=== PATIENT | male | born 1970 | race African-American/Black ===

== ENCOUNTER 2017-07-15 12:33 | Emergency (ER) | payer OTHER ==
[~2017-07-15] VITALS: Ht 175.3 cm; Wt 90.0 kg
[2017-07-15 12:54] VITALS: BP 156/118
--- NOTE | 2017-07-15 12:58 | NUR ---
Patient ambulated to bed 7. RN evaluating patient at bedside.
--- NOTE | 2017-07-15 13:00 | NUR ---
PATIENT BIB SELF C/O BL LOWER BACK PAIN X 17 YEARS.HX OF [place] . 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 ER MD MADE AWARE OF PT STATUS.
--- NOTE | 2017-07-15 13:44 | NUR ---
Dr. Conklin evaluating patient at bedside.
[2017-07-15 14:05] VITALS: BP 156/118
--- NOTE | 2017-07-15 14:05 | NUR ---
Patient discharged with v/s stable. Written and verbal after care instructions given and explained.Patient alert, oriented and verbalized understanding of instructions. Ambulatory with steady gait. All questions addressed prior to discharge. ID band removed. Patient advised to follow up with PMD. Rx of NORCO given. Patient educated on indication of medication including possible reaction and side effects. Opportunity to ask questions provided and answered.
== END 2017-07-15 14:05 | disposition home or self-care (01) ==
LOC: MED 12:33
DX: G89.29 Other chronic pain (principal); M54.5 Low back pain; F17.210 Nicotine dependence, cigarettes, uncomplicated; Z88.8 Allergy status to other drugs, medicaments and biological substances
CPT/HCPCS: 81002; 99283

== ENCOUNTER 2019-01-29 11:04 | Emergency (ER) | payer OTHER ==
[~2019-01-29] VITALS: Ht 175.3 cm; Wt 79.5 kg
[2019-01-29 11:09] VITALS: BP 135/100
--- NOTE | 2019-01-29 11:16 | NUR ---
PT AMB TO BED 9
--- NOTE | 2019-01-29 11:20 | NUR ---
48 YO M BIB SELF C/O LOWER BACK PAIN AT 9/10 X 14 YEARS, CAME IN TODAY STATING PAIN IS UNBEARABLE. PT DENIES ANY RECENT INJURIES OR TRAUMA. PT HAS A HARD MASS TO L ANTERIOR NECK THAT IS TENDER TO TOUCH. PER PATIENT "YELLOW DISCHARGE" WAS NOTED EARLIER TODAY. PLACED IN BED 9 WAITING FOR ER MD EVALUATION.
[2019-01-29] MEDS ORDERED: ceFAZolin 1,000 MG VIAL IM ONE (13:20)
[2019-01-29] MEDS ORDERED: KETOROLAC 60 MG/2 ML VIAL IM ONE (13:20)
[2019-01-29] MEDS ORDERED: WATER STERILE 10 ML MC ONE (13:42)
--- NOTE | 2019-01-29 14:00 | NUR ---
PER PT PAIN REDUCED TO COMFORTABLE LEVEL POST TORADOL ADMINISTRATION.
[2019-01-29 14:23] VITALS: BP 135/100
--- NOTE | 2019-01-29 14:23 | NUR ---
Patient discharged with v/s stable. Written and verbal after care instructions given and explained. Patient alert, oriented and verbalized understanding of instructions. Ambulatory with steady gait. All questions addressed prior to discharge. ID band removed. Patient advised to follow up with PMD. Rx of Naprosyn and Keflex given. Patient educated on indication of medication including possible reaction and side effects. Opportunity to ask questions provided and answered.
== END 2019-01-29 14:23 | disposition home or self-care (01) ==
LOC: MED 11:04
DX: L73.8 Other specified follicular disorders (principal); M54.9 Dorsalgia, unspecified; G89.29 Other chronic pain; Z88.6 Allergy status to analgesic agent; M10.9 Gout, unspecified
CPT/HCPCS: 96372; 99283; J0690; J1885

== ENCOUNTER 2019-09-27 22:57 | Emergency (ER) | payer OTHER ==
[~2019-09-27] VITALS: Ht 175.3 cm; Wt 95.3 kg
--- NOTE | 2019-09-27 22:59 | NUR ---
PT BROUGHT IN A PRE BOOK
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
[2019-09-27 23:04] VITALS: BP 127/77
[2019-09-27 23:23] VITALS: BP 127/77
--- NOTE | 2019-09-27 23:25 | NUR ---
Patient discharged with v/s stable. Written and verbal after care instructions given and explained. Patient verbalized understanding. PT AMBULATED WITH [facility] [employer] in custody. All questions addressed prior to discharge. Advised to follow up with PMD. PT STATED HE HAD NO PAIN 0/10 PRIOR TO D/C.
== END 2019-09-27 23:25 ==
LOC: MED 22:57
DX: Z02.89 Encounter for other administrative examinations (principal); Z88.8 Allergy status to other drugs, medicaments and biological substances; V89.2XXA Person injured in unspecified motor-vehicle accident, traffic, initial encounter; Y93.89 Activity, other specified; Y92.89 Other specified places as the place of occurrence of the external cause; Y99.8 Other external cause status
CPT/HCPCS: 99283